=== PATIENT | female | born 1970 | race Caucasian/White ===

== ENCOUNTER 2016-08-05 11:36 | Emergency (ER) | payer BC, MEDICAID ==
[2016-08-05] MEDS ORDERED: PROPARACAINE HCL OPTH 15ML BTL OPTH ONE (14:00)
--- NOTE | 2016-08-05 14:44 | Emergency Department Record ---
History of Present Illness - General Chief complaint: Eye Problem Stated complaint: OXYCLEAN IN LT EYE Time Seen by Provider: 08/05/16 13:15 Source: Patient Mode of Arrival: Ambulatory Limitations: No limitations - History of Present Illness Initial comments: pt had oxyclean powder splash in her eye [a lot she states] [ph 10.7] she flushed her eye at home. she states her eye bran MD chief complaint: Eye pain, Eye redness, Eye injury Onset/Timin -: Minutes(s) Onset Description: Sudden Location: Left eye Place: Home If Injury: Chemical exposure Eye Symptoms: Burning, Blurry vision, Foreign body sensation, Pain, Photophobia Severity: Moderate Severity scale (1-10): 7 If Pain, Quality: Burning Consistency: Constant Associated Symptoms: None Treatments Prior to Arrival: Irrigated eye - Related Data Visual acuity (L) = 20/: 20 Visual acuity (R) = 20/: 20 With correction: No Hx Tetanus Toxoid Vaccination: Yes Previous Rx's Medication Instructions Recorded Hydrocodone/Acetaminophen [[place] 1 tab PO Q6H PRN #7 tab 08/05/16 5mg/325mg] Allergies Allergy/AdvReac Type Severity Reaction Status Date / Time prochlorperazine edisylate Allergy Severe ANAPHYLAXIS Unverified 10/06/15 11:05 [From Compazine] prochlorperazine maleate Allergy Severe ANAPHYLAXIS Unverified 10/06/15 11:05 [From Compazine] Travel Screening - Travel/Exposure Within Last 30 Days Have you traveled within the last 30 days?: No Review of Systems Reviewed: No additional complaints except as noted below Constitutional: Reports: As per HPI. Denies: Chills, Fever, Malaise, Night sweats, Weakness, Weight change Eyes: Reports: As per HPI. Denies: Eye discharge, Eye pain, Photophobia, Vision change ENT: Reports: As per HPI. Denies: Congestion, Dental pain, Ear pain, Epistaxis , Hearing loss, Throat pain Respiratory: Reports: As per HPI. Denies: Cough, Dyspnea, Hemoptysis, Stridor, Wheezes Cardiovascular: Reports: As per HPI. Denies: Arrhythmia, Chest pain, Dyspnea on exertion, Edema, Murmurs, Orthopnea, Palpitations, Paroxysmal nocturnal dyspnea, Rheumatic Fever, Syncope Endocrine: Reports: As per HPI. Denies: Fatigue, Heat or cold intolerance, Polydipsia, Polyuria Gastrointestinal: Reports: As per HPI. Denies: Abdominal pain, Constipation, Diarrhea, Hematemesis, Hematochezia, Melena, Nausea, Vomiting Genitourinary: Reports: As per HPI. Denies: Abnormal menses, Discharge, Dyspareunia, Dysuria, Frequency, Hematuria, Incontinence, Retention, Urgency Musculoskeletal: Reports: As per HPI. Denies: Arthralgia, Back pain, Gout, Joint swelling, Myalgia, Neck pain Skin: Reports: As per HPI. Denies: Bruising, Change in color, Change in hair/ nails, Lesions, Pruritus, Rash Neurological: Reports: As per HPI. Denies: Abnormal gait, Confusion, Headache, Numbness, Paresthesias, Seizure, Tingling, Tremors, Vertigo, Weakness Psychiatric: Reports: As per HPI. Denies: Anxiety, Auditory hallucinations, Depression, Homicidal thoughts, Suicidal thoughts, Visual hallucinations Hematological/Lymphatic: Reports: As per HPI. Denies: Anemia, Blood Clots, Easy bleeding, Easy bruising, Swollen glands Past Medical History - SOCIAL HISTORY Smoking Status: Never smoker - RESPIRATORY Hx Respiratory Disorders: Yes Hx Asthma: Yes (exercised induced in highschool) - CARDIOVASCULAR Hx Cardio Disorders: No - NEURO Hx Neuro Disorders: No - GI Hx GI Disorders: No - Hx Genitourinary Disorders: No - ENDOCRINE Hx Endocrine Disorders: Yes Hx Thyroid Disease: Yes - MUSCULOSKELETAL Hx Musculoskeletal Disorders: Yes Hx Back Injury: Yes - PSYCH Hx Psych Problems: No - HEMATOLOGY/ONCOLOGY Hx Hematology/Oncology Disorders: No Family Medical History Any Significant Family History?: Yes Hx Dementia: Grandparents Physical Exam - General General Appearance: Alert, Oriented x3, Cooperative, Mild distress - Head Head exam: Normal inspection - Eye Eye exam: Normal appearance, PERRL, Conjunctival injection, EOMI, Other ( flourescein uptake at 7 oclock) Pupils: Normal accommodation With correction: No Image of Eyes: 1 - corneal abrasion - ENT ENT exam: Normal exam, Mucous membranes moist, Normal external ear exam, Normal orophraynx Ear exam: Normal external inspection. negative: External canal tenderness Nasal Exam: Normal inspection. negative: Discharge, Sinus tenderness Mouth exam: Normal external inspection, Tongue normal Teeth exam: Normal inspection. negative: Dental caries Throat exam: Normal inspection. negative: Tonsillar erythema, Tonsillar exudate - Neck Neck exam: Normal inspection, Full ROM. negative: Tenderness - Respiratory Respiratory exam: Normal lung sounds bilaterally. negative: Respiratory distress - Cardiovascular Cardiovascular Exam: Regular rate, Normal rhythm, Normal heart sounds - GI/Abdominal GI/Abdominal exam: Soft, Normal bowel sounds. negative: Tenderness - Rectal Rectal exam: Deferred - exam: Deferred - Extremities Extremities exam: Normal inspection, Full ROM, Normal capillary refill. negative: Tenderness - Back Back exam: Reports: Normal inspection, Full ROM. Denies: Muscle spasm, Rash noted, Tenderness - Neurological Neurological exam: Alert, CN II-XII intact, Normal gait, Oriented X3 - Psychiatric Psychiatric exam: Normal affect, Normal mood - Skin Skin exam: Dry, Intact, Normal color, Warm Course Vital Signs 08/05/16 11:55 Temperature 98.8 F Pulse Rate 87 Respiratory 20 Rate Blood Pressure 103/75 Pulse Ox 97 - Reevaluation(s) Reevaluation #1: 08/05/16 14:46 d/w dr rodriguez Disposition Disposition: Discharge Clinical Impression: Alkaline burn of left cornea Corneal abrasion Qualifiers: Encounter type: initial encounter Laterality: left Qualified Code(s): S05.02XA - Injury of conjunctiva and corneal abrasion without foreign body, left eye, initial encounter Disposition: Home, Self-Care Condition: (1) Good Instructions: Chemical Eye Bran (ED), Corneal Abrasion (ED) Additional Instructions: use ointment 4 times a day. leave patch on for the night. if eye is sore in the morning go directly to dr rodriguez office. Prescriptions: Hydrocodone/Acetaminophen [[place] 5mg/325mg] 1 tab PO Q6H PRN #7 tab PRN Reason: Pain - General Referrals: HOLLEY RODRIGUEZ [MEDICAL DOCTOR] - Forms: Patient Portal Access
[2016-08-05] MEDS ORDERED: GENTAMICIN OPTH OINT 3.5 GM TUBE OPTH ONE (14:46)
== END 2016-08-05 14:59 | disposition home or self-care (01) ==
LOC: ER 11:36
DX: T26.62XA Corrosion of cornea and conjunctival sac, left eye, initial encounter (principal); S05.02XA Injury of conjunctiva and corneal abrasion without foreign body, left eye, initial encounter; Y92.009 Unspecified place in unspecified non-institutional (private) residence as the place of occurrence of the external cause
CPT/HCPCS: 99283

== ENCOUNTER 2017-09-07 21:41 | Emergency (ER) | payer BC, MEDICAID ==
--- NOTE | 2017-09-07 22:07 | Emergency Department Record ---
History of Present Illness - General Chief Complaint: Knee injury Stated Complaint: R KNEE INJURY Time Seen by Provider: 09/07/17 22:02 Source: Patient Mode of Arrival: Ambulatory Limitations: No limitations - History of Present Illness Initial Comments: 46 yo female presents to ED for evaluation of right knee pain after striking her knee on a trailer hitch earlier in the day. Patient reports taking Ibuprofen following her injury, reuslts that it "took the edge off the pain". Patient reports that she has been able to ambulate following her injury but it has been painful. Patient also report that she is able to flex the knee with pain. MD Complaint: Knee injury Onset/Timin -: Hour(s) Injury: Knee: Right Place: Home Severity: Moderate Severity scale (1-10): 7 Worsens With: Weight bearing Context: Direct blow Treatments Prior to Arrival: NSAIDS - Related Data Allergies Allergy/AdvReac Type Severity Reaction Status Date / Time prochlorperazine edisylate Allergy Severe ANAPHYLAXIS Verified 09/07/17 21:49 [From Compazine] prochlorperazine maleate Allergy Severe ANAPHYLAXIS Verified 09/07/17 21:49 [From Compazine] Travel Screening - Travel/Exposure Within Last 30 Days Have you traveled within the last 30 days?: No - Travel/Exposure Within Last Year Have you traveled outside the [place] in the last year?: No - Additonal Travel Details Have you been exposed to anyone with a communicable illness?: No - Travel Symptoms Symptom Screening: None Review of Systems Constitutional: Denies: Chills, Fever, Malaise, Night sweats Eyes: Denies: Eye discharge, Eye pain ENT: Denies: Congestion, Ear pain, Epistaxis Respiratory: Denies: Cough, Dyspnea Cardiovascular: Denies: Chest pain, Dyspnea on exertion Endocrine: Denies: Fatigue, Heat or cold intolerance Gastrointestinal: Denies: Abdominal pain, Nausea, Vomiting Genitourinary: Denies: Incontinence, Retention Musculoskeletal: Reports: Arthralgia, Joint swelling. Denies: Back pain, Gout Skin: Denies: Bruising, Change in color Neurological: Denies: Abnormal gait, Confusion, Headache, Seizure Psychiatric: Denies: Anxiety Hematological/Lymphatic: Denies: Anemia, Blood Clots Past Medical History - SOCIAL HISTORY Smoking Status: Never smoker Alcohol Use: None Drug Use: None - RESPIRATORY Hx Respiratory Disorders: Yes Hx Asthma: Yes (exercised induced in highschool) - CARDIOVASCULAR Hx Cardio Disorders: No - NEURO Hx Neuro Disorders: No - GI Hx GI Disorders: No - Hx Genitourinary Disorders: No - ENDOCRINE Hx Endocrine Disorders: Yes Hx Thyroid Disease: Yes - MUSCULOSKELETAL Hx Musculoskeletal Disorders: Yes Hx Back Injury: Yes - PSYCH Hx Psych Problems: No - HEMATOLOGY/ONCOLOGY Hx Hematology/Oncology Disorders: No Family Medical History Any Significant Family History?: No Hx Dementia: Grandparents Physical Exam - General General Appearance: Alert, Oriented x3, Cooperative, Mild distress Limitations: No limitations - Head Head exam: Atraumatic, Normocephalic, Normal inspection Head exam detail: negative: Abrasion, Contusion, Murillo's sign, General tenderness, Hematoma, Laceration - Eye Eye exam: Normal appearance. negative: Conjunctival injection, Periorbital swelling, Periorbital tenderness, Scleral icterus - ENT Ear exam: negative: Auricular hematoma, Auricular trauma Nasal Exam: negative: Active bleeding, Discharge, Dried blood, Foreign body Mouth exam: negative: Drooling, Laceration, Muffled voice, Tongue elevation - Neck Neck exam: Normal inspection. negative: Meningismus, Tenderness - Respiratory Respiratory exam: Normal lung sounds bilaterally. negative: Rales, Respiratory distress, Rhonchi, Stridor - Cardiovascular Cardiovascular Exam: Regular rate, Normal rhythm, Normal heart sounds - GI/Abdominal GI/Abdominal exam: Soft. negative: Rebound, Rigid, Tenderness - Rectal Rectal exam: Deferred - exam: Deferred - Extremities Extremities exam: Tenderness (TTP to the infra-patellar region on examination, flexion knee intact, no significant effusion is present, no warmth/erythema to suggest septic joint is present.). negative: Calf tenderness, Pedal edema - Back Back exam: Denies: CVA tenderness (R), CVA tenderness (L) - Neurological Neurological exam: Alert, Normal gait, Oriented X3 - Psychiatric Psychiatric exam: Normal affect, Normal mood - Skin Skin exam: Normal color. negative: Abrasion Type of lesion: negative: abrasion Course Vital Signs 09/07/17 21:45 Temperature 98.6 F Pulse Rate 86 Respiratory 20 Rate Blood Pressure 116/78 Pulse Ox 96 - Reevaluation(s) Reevaluation #1: 09/07/17 23:04 Right knee: No acute process identified. Patient was updated on her radiology results, denies the need for crutches as she has some at home. All questions were answered, and the patient appears stable for discharge at this time. Disposition Disposition: Discharge Clinical Impression: Contusion of knee, right Qualifiers: Encounter type: initial encounter Qualified Code(s): S80.01XA - Contusion of right knee, initial encounter Disposition: Home, Self-Care Condition: (2) Stable Instructions: Contusion in Adults (ED) Additional Instructions: Return to ED if your symptoms worsen or if you have any concerns. Ice, Ibuprofen as needed for pain symptoms. Follow-up with your family doctor in 3-5 days as directed. Forms: Patient Portal Access Time of Disposition: 22:50 Quality - Quality Measures Quality Measures: N/A - Blood Pressure Screening Does Patient Have Any of the Following: No Blood Pressure Classification: Normal BP Reading Systolic Measurement: 116 Diastolic Measurement: 78 Screening for High Blood Pressure: < Normal BP, F/U Not Required > [G8783]
--- NOTE | 2017-09-08 18:33 | RADIOLOGY REPORT ---
EXAM: KNEE, RIGHT 4 VIEWS HISTORY: DIRECT BLOW TO RIGHT KNEE BELOW PATELLA WITH PAIN. TECHNIQUE: Four views right knee. COMPARISON: No prior right knee series. ENCOUNTER: Initial. FINDINGS: No definite fracture or dislocation of the right knee identified. No definite joint effusion seen. IMPRESSION: NO FRACTURE OF THE RIGHT KNEE IDENTIFIED. JOB NUMBER: [id number] MTDD
== END 2017-09-07 23:06 | disposition home or self-care (01) ==
LOC: ER 21:41
DX: S80.01XA Contusion of right knee, initial encounter (principal); W22.09XA Striking against other stationary object, initial encounter; Y92.007 Garden or yard of unspecified non-institutional (private) residence as the place of occurrence of the external cause
CPT/HCPCS: 99283

== ENCOUNTER 2018-03-18 08:38 | Emergency (ER) | payer BC, MEDICAID ==
[2018-03-18] MEDS ORDERED: 0.9 % SODIUM CHLORIDE 1,000 ML BAG IV ONE (08:54)
[2018-03-18] MEDS ORDERED: KETOROLAC 30 MG/ML VIAL IVP ONE (08:54)
[2018-03-18] MEDS ORDERED: DIPHENHYDRAMINE HCL 50 MG/ML VIAL IVP ONE (08:54)
[2018-03-18] MEDS ORDERED: METOCLOPRAMIDE HCL 10 MG/2 ML VIAL IVP ONE (08:54)
--- NOTE | 2018-03-18 08:55 | Emergency Department Record ---
History of Present Illness - General Chief Complaint: Dizziness Stated Complaint: SEVERE MIGRAINE Time Seen by Provider: 03/18/18 08:48 Source: Patient Mode of Arrival: Ambulatory Limitations: No limitations - History of Present Illness Initial Comments: The patient is here due to not feeling well for a few days. She has had dizziness and lightheadness for 2 days. The patient states the feeling is like she is off balance and unsteady. There is also a feeling of nausea and "clamminess" at times. She did have a migraine a few days ago but that is gone now. The patient also has had posterior neck pain off and on for a few weeks. Presently the symptoms are worse with any head movement. She denies any visual changes, arm or leg numbness, tingling or weakness. MD Complaint: Dizziness, Lightheadedness Onset/Timin -: Days(s) Severity: Moderate - Related Data Previous Rx's Medication Instructions Recorded Meclizine HCl [Antivert] 25 mg PO Q8H #21 tablet 03/18/18 Allergies Allergy/AdvReac Type Severity Reaction Status Date / Time prochlorperazine edisylate Allergy Severe ANAPHYLAXIS Verified 03/18/18 08:49 [From Compazine] prochlorperazine maleate Allergy Severe ANAPHYLAXIS Verified 03/18/18 08:49 [From Compazine] Travel Screening - Travel/Exposure Within Last 30 Days Have you traveled within the last 30 days?: No - Travel/Exposure Within Last Year Have you traveled outside the [place] in the last year?: No - Additonal Travel Details Have you been exposed to anyone with a communicable illness?: No - Travel Symptoms Symptom Screening: None Review of Systems Constitutional: Denies: Chills, Fever Eyes: Denies: Eye discharge ENT: Denies: Congestion Respiratory: Denies: Cough, Dyspnea Cardiovascular: Denies: Arrhythmia, Chest pain Past Medical History - SOCIAL HISTORY Smoking Status: Never smoker Alcohol Use: None, Rare Drug Use: None - RESPIRATORY Hx Respiratory Disorders: Yes Hx Asthma: Yes (exercised induced in highschool) - CARDIOVASCULAR Hx Cardio Disorders: No - NEURO Hx Neuro Disorders: No - GI Hx GI Disorders: No - Hx Genitourinary Disorders: No - ENDOCRINE Hx Endocrine Disorders: Yes Hx Thyroid Disease: Yes - MUSCULOSKELETAL Hx Musculoskeletal Disorders: Yes Hx Back Injury: Yes - PSYCH Hx Psych Problems: No - HEMATOLOGY/ONCOLOGY Hx Hematology/Oncology Disorders: No Family Medical History Any Significant Family History?: Yes Hx Dementia: Grandparents Physical Exam - General General Appearance: Alert, Oriented x3, Cooperative, No acute distress - Head Head exam: Atraumatic, Normocephalic, Normal inspection - Eye Eye exam: Normal appearance, PERRL, EOMI, Nystagmus (bilaterally mildly.) - ENT ENT exam: Normal exam, Mucous membranes moist, Normal external ear exam, Normal orophraynx, TM's normal bilaterally Throat exam: Normal inspection. negative: Tonsillar erythema, Tonsillar exudate - Neck Neck exam: Normal inspection, Full ROM, Tenderness (Palpation of the posterior cervical muscles exactly reproduces the patient's neck pain.). negative: Lymphadenopathy, Meningismus - Respiratory Respiratory exam: Normal lung sounds bilaterally. negative: Respiratory distress - Cardiovascular Cardiovascular Exam: Regular rate, Normal rhythm, Normal heart sounds - GI/Abdominal GI/Abdominal exam: Soft, Normal bowel sounds. negative: Tenderness - Extremities Extremities exam: Normal inspection, Full ROM, Normal capillary refill. negative: Tenderness - Back Back exam: Reports: Normal inspection - Neurological Neurological exam: Alert, Normal gait, Oriented X3, Other (Neg Drift and Rhomberg exams. The finger to nose testing is normal bilaterally.). negative: Abnormal gait, Altered, Motor sensory deficit - Psychiatric Psychiatric exam: negative: Anxious Course Vital Signs 03/18/18 08:42 Temperature 97.9 F Pulse Rate 59 L Respiratory 18 Rate Blood Pressure 107/70 Pulse Ox 99 - Reevaluation(s) Reevaluation #1: The patient is doing better at this time. She denies any pain but still does have some dizziness when she moves her head. 03/18/18 10:29 Reevaluation #2: The patient is doing a lot better at this time. Her dizziness is 75% improved and she is able to get up and walk with no difficulty. I did explain that her tests were normal including the head CT. We will discharge the patient on Antivert and she does have an appointment with her PCP tomorrow morning. 03/18/18 10:55 Medical Decision Making - Data Complexity MDM Data: Labs Ordered and/or Reviewed, X-Ray Ordered and/or Reviewed - Lab Data Result diagrams: 03/18/18 09:00 03/18/18 09:00 - Radiology Data Radiology results: Report reviewed (Head CT: Neg.) Disposition Disposition: Discharge Clinical Impression: Vertigo Disposition: Home, Self-Care Condition: (2) Stable Instructions: Dizziness (ED) Additional Instructions: Please continue your regular medicines and take the Antivert as directed. Please see your doctor tomorrow morning as planned and return to the ER for any worsening symptoms. Prescriptions: Meclizine HCl [Antivert] 25 mg PO Q8H #21 tablet Forms: Patient Portal Access Time of Disposition: 10:58 Quality - Quality Measures Quality Measures: N/A - Blood Pressure Screening View Details: Yes Does Patient Have Any of the Following: No Blood Pressure Classification: Normal BP Reading Systolic Measurement: 107 Diastolic Measurement: 70 Screening for High Blood Pressure: < Normal BP, F/U Not Required > [G8783]
[2018-03-18 09:12] LABS: BASO % 0.7 % (0-6); EOS % 1.3 % (0-6); HEMATOCRIT 42.2 % (35.0-47.0); HEMOGLOBIN 13.8 gm/dl (11.6-16.0); LYMPH % 15.7 % (16-45); MEAN CELL VOLUME 90.4 fl (81-97); MEAN CORPUSCULAR HEMOGLOBIN 29.6 pg (27-33); MEAN CORPUSCULAR HGB CONC 32.7 g/dl (32-36); MEAN PLATELET VOLUME 10.1 fl (7.4-10.4); MONO % 7.3 % (0-9); PLATELET COUNT 211 K/uL (130-400); RED BLOOD COUNT 4.67 M/uL (3.80-5.40); RED CELL DISTRIBUTION WIDTH 12.7 % (11.5-14.5); WHITE BLOOD COUNT W/O DIFF 6.7 K/uL (4.2-12.2)
[2018-03-18 09:22] LABS: BLOOD UREA NITROGEN 16 mg/dL (6-20); CREATININE 0.7 mg/dL (0.5-0.9); EST GLOMERULAR FILTRATION RATE > 60 mL/min
[2018-03-18 09:25] LABS: GLUCOSE,RANDOM 118 mg/dL (74-109)
[2018-03-18 09:27] LABS: ALB/GLOB RATIO 1.7 (1.1-1.8); ALBUMIN 4.4 g/dL (4.0-5.0); ALKALINE PHOSPHATASE 43 U/L (35-104); ALT/SGPT 12 U/L (<33); AST/SGOT 14 U/L (10.0-35.0)
[2018-03-18] MEDS ORDERED: MECLIZINE 25 MG TABLET PO ONE (10:19)
--- NOTE | 2018-03-20 08:52 | CT SCAN REPORT ---
EXAM: CT OF THE BRAIN WITHOUT CONTRAST HISTORY: HEADACHE. TECHNIQUE: Sequential axial images were obtained from the foramen magnum to the vertex without contrast administration. FINDINGS: The brain volume is normal. No large territorial infarct, hemorrhage , mass effect, or midline shift. No extraaxial fluid collection. The orbits, paranasal sinuses, and mastoid air cells are normal. IMPRESSION: NO ACUTE INTRACRANIAL ABNORMALITY IS APPRECIATED. JOB NUMBER: [id number] [facility]
== END 2018-03-18 11:08 | disposition home or self-care (01) ==
LOC: ER 08:38
DX: R42 Dizziness and giddiness (principal); R11.0 Nausea; M54.2 Cervicalgia
CPT/HCPCS: 99284 ×2; 96374; 96375; 96361; 85025; 80053; 83036; 84703; 70450; J1885; J1200; J2765; J7030

== ENCOUNTER 2018-03-21 07:27 | Emergency (ER) | payer BC, MEDICAID ==
--- NOTE | 2018-03-21 07:41 | Emergency Department Record ---
History of Present Illness - General Chief Complaint: Headache Migraine Stated Complaint: migraine Time Seen by Provider: 03/21/18 07:29 Source: Patient, Family Mode of Arrival: Ambulatory Limitations: No limitations - History of Present Illness Initial Comments: 47 yo female presents with return of nausea, dizziness and headache. She states the onset was about 1.5weeks ago initially. She states for the last 1.5 weeks she has taken something for a headache at least once a day. Last Saturday she states it seemed to become more constant with dizziness, nausea, and migraine like headache. She was seen in the ED on Saturday. Labs test and an HCT scan were preformed with no acute abnormalities. She followed up with her doctor the next day on the . She started Antivert yesterday and has had one dose. She had a return of the headache around 3am this morning. She took her Imitrex at 3am without relief. No recent illness, fever, trauma or other symptoms. She reports migraines for many years usually 2-3 times a year that are significant. She has had vertigo in the past as well but not for several years. PCP is Krystyna Guillen. Complaint: "Migraine", Other -: Days(s) Onset Description: Gradual Location: Diffuse, Neck Severity: Moderate Quality: Aching Consistency: Intermittent Improves With: Rest Worsens With: Exertion/activity, Light, Movement of head/neck Context: Other Associated Symptoms: Nausea, Photophobia, Sensitivity to sound, Vomiting Other Symptoms: Other Treatments Prior to Arrival: Acetaminophen, Ibuprofen, Migraine medication - Related Data Home Medications Medication Instructions Recorded Confirmed Last Taken Acetaminophen [Tylenol Extra 500 mg PO PRN 03/21/18 03/21/18 06:00 Strength] Ibuprofen [Motrin 400Mg] 400 mg PO Q8H PRN 03/21/18 03/21/18 03/21/18 06:00 Previous Rx's Medication Instructions Recorded Meclizine HCl [Antivert] 25 mg PO Q8H #21 tablet 03/18/18 Allergies Allergy/AdvReac Type Severity Reaction Status Date / Time prochlorperazine edisylate Allergy Severe ANAPHYLAXIS Unverified 03/21/18 07:32 [From Compazine] prochlorperazine maleate Allergy Severe ANAPHYLAXIS Unverified 03/21/18 07:32 [From Compazine] Review of Systems Constitutional: Reports: Malaise, Weakness. Denies: Chills, Fever Eyes: Reports: Photophobia. Denies: Eye discharge, Eye pain, Vision change ENT: Denies: Congestion, Dental pain, Throat pain Respiratory: Denies: Cough, Dyspnea Cardiovascular: Denies: Chest pain, Edema, Palpitations, Syncope Endocrine: Reports: Fatigue Gastrointestinal: Reports: Nausea, Vomiting Genitourinary: Denies: Dysuria, Urgency Musculoskeletal: Reports: Neck pain. Denies: Arthralgia Skin: Denies: Bruising, Change in color, Rash Neurological: Reports: Headache, Vertigo. Denies: Abnormal gait, Confusion, Numbness, Paresthesias, Seizure, Tingling, Tremors, Weakness Psychiatric: Denies: Anxiety Hematological/Lymphatic: Denies: Blood Clots, Easy bleeding, Easy bruising Past Medical History - SOCIAL HISTORY Smoking Status: Never smoker Drug Use: None - RESPIRATORY Hx Respiratory Disorders: Yes Hx Asthma: Yes (exercised induced in highschool) - CARDIOVASCULAR Hx Cardio Disorders: No - NEURO Hx Neuro Disorders: No - GI Hx GI Disorders: No - Hx Genitourinary Disorders: No - ENDOCRINE Hx Endocrine Disorders: Yes Hx Thyroid Disease: Yes - MUSCULOSKELETAL Hx Musculoskeletal Disorders: Yes Hx Back Injury: Yes - PSYCH Hx Psych Problems: No - HEMATOLOGY/ONCOLOGY Hx Hematology/Oncology Disorders: No Family Medical History Hx Dementia: Grandparents Physical Exam - General General Appearance: Alert, Oriented x3, Cooperative, No acute distress Limitations: No limitations - Head Head exam: Atraumatic, Normal inspection - Eye Eye exam: Normal appearance, PERRL. negative: Conjunctival injection, Periorbital swelling - ENT ENT exam: Normal exam, Mucous membranes moist Ear exam: Normal external inspection Nasal Exam: Normal inspection Mouth exam: Normal external inspection Teeth exam: Normal inspection - Neck Neck exam: Normal inspection. negative: Lymphadenopathy, Meningismus - Respiratory Respiratory exam: Normal lung sounds bilaterally. negative: Respiratory distress - Cardiovascular Cardiovascular Exam: Regular rate, Normal rhythm, Normal heart sounds Peripheral Pulses: 2+: Radial (R), Radial (L) - GI/Abdominal GI/Abdominal exam: Soft - Rectal Rectal exam: Deferred - exam: Deferred - Extremities Extremities exam: Normal inspection - Back Back exam: Denies: CVA tenderness (R), CVA tenderness (L), Muscle spasm, Tenderness - Neurological Neurological exam: Alert, CN II-XII intact, Normal gait, Oriented X3, Reflexes normal, Other (Steady walking, no ataxia, clear speech and thought, symmetric face, ). negative: Abnormal gait, Altered, Motor sensory deficit - Psychiatric Psychiatric exam: Normal affect, Normal mood. negative: Agitated, Anxious, Depressed, Flat affect - Skin Skin exam: Dry, Intact, Normal color, Warm. negative: Cyanosis, Diaphoretic, Erythema Course - Reevaluation(s) Reevaluation #1: EMR reviewed. ED visit 03/18/18. HCT was negative. PCP visit . 03/21/18 07:34 Labs reviewed from 03/18/18 were normal 03/21/18 08:21 The patient reports her symptoms are greatly improved. We discussed possible close PCP follow up and MRI given the dizziness is now prolonged at about 5 days. 03/21/18 09:46 The patient is doing much better. We discussed options at this point including transfer, admit for observation, follow up close outpatient plan. The patient is feeling much better and requests outpatient plan [facility] was contacted. The office was able to authorize MRI tomorrow. 03/21/18 09:52 The patient has been up to the restroom on two occasions. She is very stable. No ataxia. Her symptoms have significantly improved 03/21/18 09:56 MRI has been scheduled The patient is comfortable with DC and follow up plan We discussed home care and reasons to return to the ED 03/21/18 10:27 Disposition Disposition: Discharge Clinical Impression: Vertigo, Headache Disposition: Home, Self-Care Condition: (1) Good Instructions: Acute Headache (ED), Dizziness (ED) Additional Instructions: Rest today and stay well hydrated Return or be seen if worse immediately Your family doctor has scheduled an MRI for tomorrow for further evaluation of the dizziness and headaches MRI Appointment Please come to ER registration Arrival 615pm Scan 645pm Forms: Patient Portal Access Time of Disposition: 10:28 Quality - Quality Measures Quality Measures: N/A - Blood Pressure Screening Does Patient Have Any of the Following: No Blood Pressure Classification: Normal BP Reading Systolic Measurement: 105 Diastolic Measurement: 68 Screening for High Blood Pressure: < Normal BP, F/U Not Required > [[id number]]
[2018-03-21] MEDS ORDERED: 0.9 % SODIUM CHLORIDE 1,000 ML BAG IV ONE (07:46)
[2018-03-21] MEDS ORDERED: DEXAMETHASONE SOD PHOSPHATE 10MG/ML VIAL IVP ONE (07:47)
[2018-03-21] MEDS ORDERED: KETOROLAC 30 MG/ML VIAL IVP ONE (07:47)
[2018-03-21] MEDS ORDERED: DIPHENHYDRAMINE HCL 50 MG/ML VIAL IVP ONE (07:47)
[2018-03-21] MEDS ORDERED: METOCLOPRAMIDE HCL 10 MG/2 ML VIAL IVP ONE (07:47)
[2018-03-21] MEDS ORDERED: ONDANSETRON HCL IV 4 MG/2 ML VIAL IVP ONE (08:36)
[2018-03-21] MEDS ORDERED: MAGNESIUM SULFATE 16 MEQ in 0.9 % SODIUM CHLORIDE 100ML 100 ML IV ONE (08:37)
[2018-03-21] MEDS ORDERED: MECLIZINE 25 MG TABLET PO ONE (08:38)
== END 2018-03-21 10:41 | disposition home or self-care (01) ==
LOC: ER 07:27
DX: R51 Headache (principal); R42 Dizziness and giddiness; R11.2 Nausea with vomiting, unspecified; H53.149 Visual discomfort, unspecified
CPT/HCPCS: 99284 ×2; 96365; 96375; 96361; J1885; J2405; J1100; J1200; J2765; J7030

== ENCOUNTER 2018-04-04 08:52 | Day surgery (SDC) | payer BC, MEDICAID ==
[~2018-04-04 08:52] MED LIST: ACETAMINOPHEN 1,000 MG/100 ML BTL IV ONE; FAMOTIDINE 20MG TABLET PO ONE; MECLIZINE 25 MG TABLET PO ONE; METOCLOPRAMIDE 10 MG TABLET PO ONE
[2018-04-04] MEDS ORDERED: SEVOFLURANE 250 ML INH ONE (08:53)
[2018-04-04] MEDS ORDERED: DEXAMETHASONE 4 MG/ML 1ML VIAL IVP ONE (08:53)
[2018-04-04] MEDS ORDERED: FENTANYL PF 100MCG/2ML VIAL IV ONE (08:53)
[2018-04-04] MEDS ORDERED: PROPOFOL 10 MG/ML VIAL IV ONE (08:53)
[2018-04-04] MEDS ORDERED: SCOPOLAMINE 1 PATCH TDSY TD ONE (08:53)
[2018-04-04] MEDS ORDERED: KETOROLAC 30 MG/ML VIAL IVP ONE (08:53)
[2018-04-04] MEDS ORDERED: ACETAMINOPHEN W/ CODEINE 300MG/30MG TABLET PO ONE (08:53)
[2018-04-04] MEDS ORDERED: LIDOCAINE 2% MDV (20MG/ML) 20ML VIAL IV ONE (08:53)
[2018-04-04] MEDS ORDERED: ONDANSETRON HCL IV 4 MG/2 ML VIAL IVP ONE (08:53)
--- NOTE | 2018-04-04 16:00 | Operative Note ---
DATE OF SURGERY: 04/04/2018 Surgeon: Tomás Bartlett DO PREOPERATIVE DIAGNOSIS: Carpal tunnel syndrome of the left wrist. POSTOPERATIVE DIAGNOSIS: Carpal tunnel syndrome of the left wrist. OPERATION: Decompression left median nerve of the wrist using 3.5 loop magnification. DESCRIPTION OF PROCEDURE: This 47-year-old female was taken to the operating room and placed in the supine position on the operating room table. A general anesthetic was administered. The left upper extremity was elevated. It was prepped with Hibiclens and draped in the usual sterile fashion. It was exsanguinated and the tourniquet inflated to 250 mmHg. A palmar incision was utilized following the hypothenar crease from the level of the base of the webspace of the thumb to the flexor crease of the wrist. Dissection was carried down through the skin and subcutaneous tissue. Hemostasis was obtained with the electrocautery. Palmar fascia was divided in line with the skin incision. The flexor retinaculum was identified, punctured, split to its proximal margin and then with the contents of the carpal tunnel under direct vision, the transverse carpal ligament was transected along its ulnar border and the radial flap was raised to expose the entire median nerve under the transverse carpal ligament. The recurrent motor branch of the median nerve was identified and found to be normal. No gross pathology of the median nerve was identified. The wound was irrigated. Tourniquet released. Hemostasis obtained with the electrocautery. The wound closed with interrupted 6-0 nylon suture. Sterile dressings were applied and the patient taken to the recovery room in satisfactory condition. GROSS PATHOLOGY: This patient demonstrated no gross pathology of the median nerve per se. CC: HAJA Owens
== END 2018-04-04 11:50 | disposition home or self-care (01) ==
LOC: SUR 08:52
PROVIDERS: ATTEND Orthopaedic Surgery
DX: G56.02 Carpal tunnel syndrome, left upper limb (principal); G25.81 Restless legs syndrome
CPT/HCPCS: 64721; 64727; 01810; 81025; J1885; J2405; J3010